=== PATIENT | female | born 1975 | race Caucasian/White ===

== ENCOUNTER 2017-04-08 08:43 | Emergency (ER) | payer MEDICAID ==
[~2017-04-08] VITALS: Ht 157.5 cm; Wt 68.0 kg
[~2017-04-08 08:43] MED LIST: METO10TA92 PO; ONDA4TAB35 PO
[2017-04-08 08:45] VITALS: Ht 157.5 cm; Wt 68.0 kg
[2017-04-08] MEDS ORDERED: ALBUTEROL 0.083% (NEB) 2.5 MG/3 ML AMP HHN STA (09:05)
[2017-04-08] MEDS ORDERED: KETOROLAC 30 MG INJ IV STA (09:14)
[2017-04-08] MEDS ORDERED: IPRATROPIUM (NEB) 0.5 MG/2.5 ML AMP HHN ONE (09:30)
--- NOTE | 2017-04-08 09:57 | RADRPT ---
PROCEDURE: XR Chest. CLINICAL INDICATION: Cough, fever TECHNIQUE: Single frontal view of the chest was obtained COMPARISON: CR CHEST 06/23/2014 FINDINGS: The heart and mediastinum are within normal limits. The lungs are clear. There is no pleural effusion or pneumothorax. RPTAT: AA IMPRESSION: No acute disease. .Faisal Reddy MD, MD Date Time Electronically viewed and signed by .Faisal Reddy MD, on 04/08/2017 09:57 .S/
[2017-04-08] MEDS ORDERED: GUAI473L22 PO (10:22)
[2017-04-08] MEDS ORDERED: AZIT250T94 PO (10:22)
[2017-04-08] MEDS ORDERED: ALBU18HF INHALATION (10:22)
[2017-04-08] MEDS ORDERED: SODI126M NASAL (10:22)
[2017-04-08 10:36] VITALS: BP 127/84; PULSE 74; RESP 19; TEMP 98.1
--- NOTE | 2017-04-08 10:51 | ERD ---
ER Documentation Chief Complaint Date/Time DATE: 04/08/17 TIME: 10:45 Chief Complaint flu x 2 weeks with back pain, nasal congestion,sob HPI 41-year-old female complaining of cough 2 weeks, and fever on and off 1 week. T-max at home was 102.1 2 days ago. Cough is productive, was yellow green sputum. Patient reports short of breath. Denies chest pain. Denies abdominal pain, nausea, vomiting, diarrhea. Denies headache or neck pain. ROS All systems reviewed and are negative except as per history of present illness. Medications Home Meds Active Scripts Sodium Chloride (Saline Nasal Mist) 126 Ml Mist, 2 SPRAY NASAL Q2H Y for NASAL CONGESTION, #1 BOTTLE Prov:BUNNY HARVEY TEAM DRIVER 04/08/17 Albuterol Sulfate* (Ventolin HFA*) 18 Gm Hfa.aer.ad, 2 PUFF INHALATION Q4H, #1 INHALER Prov:BUNNY HARVEY. TEAM DRIVER 04/08/17 Guaifenesin-Codeine Phosphate* (Guaifenesin* AC Cough Syrup) 473 Ml Liquid, 5 ML PO Q4H Y for COUGH, #120 ML Prov:BUNNY HARVEY NP 04/08/17 Azithromycin* (Zithromax*) 250 Mg Tablet, 250 MG PO .ZPACK DIRECTED, #6 TAB TAKE 500 MG (2 TABS) THE FIRST DAY THEN 250 MG (1 TAB) DAYS 2-5 Prov:BUNNY HARVEY NP 04/08/17 Metoclopramide* (Reglan*) 10 Mg Tablet, 10 MG PO Q6H Y for NAUSEA AND OR VOMITING, #30 TAB Prov:ALESSANDRA THORNTON MD 03/13/15 Ondansetron Hcl* (Zofran* ODT) 4 mg -ODT Tab.disper, 4 MG PO Q6 Y for NAUSEA AND /OR VOMITING, #10 TAB Prov:PATRICK ZEPEDA PA-C 03/08/15 Allergies Allergies: Coded Allergies: No Known Allergies (Verified Allergy, Mild, 04/08/17) PMhx/Soc Medical and Surgical Hx: pt denies Surgical Hx History of Surgery: Yes (gallbladder surgery) Anesthesia Reaction: No Hx Neurological Disorder: No Hx Respiratory Disorders: No Hx Cardiac Disorders: No Hx Psychiatric Problems: No Hx Miscellaneous Medical Probl: No Hx Alcohol Use: No Hx Substance Use: No Hx Tobacco Use: No Smoking Status: Never smoker Physical Exam Vitals Vital Signs Date Time Temp Pulse Resp B/P Pulse Ox O2 Delivery O2 Flow Rate FiO2 04/08/17 10:36 98.1 74 19 127/84 100 Room Air 04/08/17 09:31 69 18 99 21 04/08/17 08:45 98.0 69 18 104/69 99 Physical Exam General: Well-developed, well-nourished, conscious and coherent, in no distress Skin: Warm and dry without rash, good texture and turgor Head: Normocephalic without evidence of trauma Eyes: Sclera and conjunctivae normal; pupils equal, round, and reactive to light; extraocular movements are intact Nose/Face: Is a mucosa erythematous and swollen Mouth/throat: Mucous membranes are moist. Posterior pharynx clear without erythema or exudates Neck: Supple without meningismus or adenopathy. Carotids are equal. Trachea midline. No bruits or JVD Chest: Normal AP diameter. Good expansion without retractions. Nontender. Wheezing and coarse lung sounds noted bilaterally, more prominent in the lower lobes. Heart: Regular rate and rhythm. No murmur, rub, or gallops heard Abdomen: Soft and nontender without masses, guarding, or rebound. Bowel sounds are active. No hepatosplenomegaly Back: Without spinal or CVA tenderness Pelvis: Nontender to palpation and stable to compression Extremities: Full range of motion. Good strength bilaterally. No clubbing, cyanosis, or edema. Peripheral pulses are intact. Sensation intact Neuro: Alert and oriented 4, GCS 15. Cranial nerves grossly intact. Motor and sensory exams nonfocal. Moves all extremities. Speech clear. Gait normal Results 24 hrs Current Medications Medications (Trade) Dose Ordered Sig/Deedee Route PRN Reason Start Time Stop Time Status Last Admin Dose Admin Albuterol (Proventil 0.083% (Neb)) 2.5 mg ONCE STAT N 04/08/17 09:05 04/08/17 09:06 DC 04/08/17 09:23 Ipratropium [place] (Atrovent 0.02% (Neb)) 0.5 mg ONCE ONCE HHN 04/08/17 09:30 04/08/17 09:31 DC 10/3/17 09:23 Ketorolac Tromethamine (Toradol) 30 mg ONCE STAT IV 04/08/17 09:14 04/08/17 09:15 Cancel PROCEDURE: XR Chest. CLINICAL INDICATION: Cough, fever TECHNIQUE: Single frontal view of the chest was obtained COMPARISON: CR CHEST 06/23/2014 FINDINGS: The heart and mediastinum are within normal limits. The lungs are clear. There is no pleural effusion or pneumothorax. RPTAT: AA IMPRESSION: No acute disease. .Faisal Reddy MD, MD Date Time Electronically viewed and signed by .Faisal Reddy MD, on 04/08/2017 09: 57 .S/ CC: BUNNY HARVEY TEAM DRIVER Procedures/MDM 41-year-old female presented ED complaining of cough 2 weeks and fever 1 week. She is given nebulizer treatment with albuterol 2.5 mg and Atrovent 1 mg in the ED. Patient reports feeling better after treatment. Repeat exam showed decreased coarse lung sounds, but not resolved. Chest x-ray is negative for acute processes. Patient is currently afebrile. I have low suspicion for pneumonia. Likely patient has bronchitis. Since patient has had a fever on and off for 1 week, I will prescribe her with azithromycin. Patient does not have any respiratory distress, her O2 sats 99%. Patient appears well, stable for discharge and outpatient management. Medical decision making shared with patient and family. Education provided to patient and family. Patient and family expressed understanding of the plan. Medications on discharge: Azithromycin, guaifenesin with codeine, albuterol HFA , saline nasal spray Follow-up: Primary care provider in 2-3 days or return to ED if worse. Disclaimer: Inadvertent spelling and grammatical errors are likely due to EHR/ dictation software use and do not reflect on the overall quality of patient care. Also, please note that the electronic time recorded on this note does not necessarily reflect the actual time of the patient encounter. Departure Diagnosis: Primary Impression: Bronchitis Condition: Stable Patient Instructions: Bronchitis With Wheezing (Adult) Additional Instructions: Call your primary care doctor TOMORROW for an appointment during the next 2-3 days.See the doctor sooner or return here if your condition worsens before your appointment time. BUNNY HARVEY. ETTA Apr 08, 2017 10:51
== END 2017-04-08 10:38 | disposition home or self-care (01) ==
LOC: FTE 08:43
DX: J20.9 Acute bronchitis, unspecified (principal); R05 Cough
CPT/HCPCS: 71010; 94664; Z7502; Z7610